=== PATIENT | female | born 1960 | race Caucasian/White ===

== ENCOUNTER 2016-07-08 06:09 | Emergency (ER) | payer OTHER ==
[2016-07-08 06:19] VITALS: BP 160/94; PULSE 108; RESP 18; TEMP 98.4; O2SAT 98
--- NOTE | 2016-07-08 06:27 | ED PDOC ---
Upper Extremity Pain/Injury Time Seen by Provider: 07/08/16 06:13 Chief Complaint (Nursing): Upper Extremity Problem/Injury Chief Complaint (Provider): Right shoulder pain History Per: Patient History/Exam Limitations: no limitations Onset/Duration Of Symptoms: Days (2x) Current Symptoms Are (Timing): Still Present Severity: Moderate Exacerbating Factor(s): Strenuous Use Of Affected Area (lifting heavy objects) Additional Complaint(s): 56 year old female patient presents to the ED with complaints of right shoulder pain that started 2x days ago. The pain is exacerbated when she lifts heavy objects. 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 She denies having any other complaints. PMD: Past Medical History Reviewed: Historical Data, Nursing Documentation, Vital Signs Vital Signs: Last Vital Signs Temp 98.4 F 07/08/16 06:17 Pulse 108 H 07/08/16 06:17 Resp 18 07/08/16 06:17 BP 160/94 H 07/08/16 06:17 Pulse Ox 98 07/08/16 06:17 - Medical History PMH: No Chronic Diseases - Family History Family History: States: Unknown Family Hx - Home Medications Home Medications: Ambulatory Orders Medication Instructions Recorded Naproxen [Naprosyn] 500 mg PO Q8 #30 tablet 07/08/16 - Allergies Allergies/Adverse Reactions: Allergies Allergy/AdvReac Type Severity Reaction Status Date / Time No Known Allergies Allergy Verified 07/08/16 06:17 Review of Systems Musculoskeletal: Positive for: Shoulder Pain (right) Physical Exam - Reviewed Nursing Documentation Reviewed: Yes Vital Signs Reviewed: Yes - Physical Exam Appears: Positive for: Well, Non-toxic, No Acute Distress Head Exam: Positive for: ATRAUMATIC, NORMOCEPHALIC Skin: Positive for: Normal Color Extremity: Positive for: Tenderness (mild tenderness to palpation on right shoulder. ). Negative for: Normal ROM (patient is unable to lift her right arm above her head), Deformity (no stepoff) Neurologic/Psych: Positive for: Alert, Oriented (3x). Negative for: Motor/ Sensory Deficits - ECG O2 Sat by Pulse Oximetry: 98 (RA) Pulse Ox Interpretation: Normal Medical Decision Making Medical Decision Makin:13 Initial impression: 56 year old female patient with right shoulder pain. Differential diagnoses include but are not limited to arthritis and degenerative joint disease. Initial plan: * XRay shoulder right * motrin tab 600mg PO * reevaluation 6:49 Upon provider reevaluation patient is feeling better, is medically stable, and requires no further treatment in the ED at this time. Patient will be discharged home with Rx for naprosyn. Counseling was provided and all questions were answered regarding diagnosis of joint arthralgia and need for follow up with PMD. There is agreement to discharge plan. Return if symptoms persist or worsen. Scribe Attestation: Documented by Simona Lynn, acting as a scribe for Brett Lopez MD. Provider Scribe Attestation: All medical record entries made by the Scribe were at my direction and personally dictated by me. I have reviewed the chart and agree that the record accurately reflects my personal performance of the history, physical exam, medical decision making, and the department course for this patient. I have also personally directed, reviewed, and agree with the discharge instructions and disposition. Disposition - Clinical Impression Clinical Impression: Shoulder pain - Disposition Referrals: Min Caldwell MD [Staff Provider] - Disposition: Routine/Home Disposition Time: 06:49 Condition: STABLE Prescriptions: Naproxen [Naprosyn] 500 mg PO Q8 #30 tablet Instructions: Shoulder Pain (ED), Arthralgia (ED) Forms: [facility] ED School/Work Excuse
--- NOTE | 2016-07-08 09:35 | RAD ---
PROCEDURE: Radiographs of the Right Shoulder, limited views HISTORY: Atraumatic shoulder pain COMPARISON: No prior. FINDINGS: BONES: No obvious fracture or dislocation. JOINTS: Degenerative changes. SOFT TISSUES: Possible calcific tendinosis. OTHER FINDINGS: None. IMPRESSION: No obvious fracture or dislocation. Repeat imaging can be obtained with internal and externally rotated views if indicated.
== END 2016-07-08 07:16 | disposition home or self-care (01) ==
LOC: H.ER 06:09
DX: M25.511 Pain in right shoulder (principal)